=== PATIENT | female | born 1970 | race Caucasian/White ===

== ENCOUNTER 2016-10-20 18:59 | Emergency (ER) | payer SELFPAY ==
[~2016-10-20] VITALS: Ht 170.2 cm; Wt 101.2 kg
[~2016-10-20 18:59] MED LIST: ALPR0.25 PO; AZIT250T6 PO; BENZ100C PO; ESTR1.25 PO; OXYC-323 PO; PRED50TA PO; PROAIR RESPICL90 MCG IH; SERT50TA PO
[2016-10-20 20:23] VITALS: BP 131/75
[2016-10-20] MEDS ORDERED: CYCL5TAB PO (20:39)
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
[2016-10-20] MEDS ORDERED: IBUPROFEN 400 MG TABLET. PO ONE (20:45)
[2016-10-20] MEDS ORDERED: CYCLOBENZAPRINE 10 MG TABLET. PO ONE (20:45)
== END 2016-10-20 20:56 | disposition home or self-care (01) ==
LOC: ER 18:59
DX: M54.6 Pain in thoracic spine (principal); M54.5 Low back pain; M25.511 Pain in right shoulder; R51 Headache; Z90.49 Acquired absence of other specified parts of digestive tract; Z90.710 Acquired absence of both cervix and uterus; Z87.19 Personal history of other diseases of the digestive system
CPT/HCPCS: 99283

== ENCOUNTER 2017-02-01 03:00 | Emergency (ER) | payer SELFPAY ==
[~2017-02-01] VITALS: Ht 167.6 cm; Wt 101.2 kg
[~2017-02-01 03:00] MED LIST changes: +CYCL5TAB PO
[2017-02-01 03:30] VITALS: BP 158/109
[2017-02-01] MEDS ORDERED: ALPRAZolam 0.5 MG TABLET PO ONE (04:30)
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
--- NOTE | 2017-02-01 08:00 | RAD ---
Indication injury, pain. AP oblique and lateral views of the right hand were obtained. No bony abnormality is seen
== END 2017-02-01 04:48 | disposition home or self-care (01) ==
LOC: ER 03:00
DX: M79.641 Pain in right hand (principal); F41.9 Anxiety disorder, unspecified; W22.8XXA Striking against or struck by other objects, initial encounter; Y93.89 Activity, other specified; Y99.8 Other external cause status; Y92.89 Other specified places as the place of occurrence of the external cause
CPT/HCPCS: 73130; 99284

== ENCOUNTER 2017-03-13 07:14 | Emergency (ER) | payer SELFPAY ==
[~2017-03-13] VITALS: Ht 170.2 cm; Wt 97.5 kg
[2017-03-13 07:25] VITALS: BP 142/82
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
== END 2017-03-13 08:23 | disposition home or self-care (01) ==
LOC: ER 07:14
DX: M54.5 Low back pain (principal); F41.9 Anxiety disorder, unspecified; F32.9 Major depressive disorder, single episode, unspecified; Z90.49 Acquired absence of other specified parts of digestive tract; Z90.710 Acquired absence of both cervix and uterus
CPT/HCPCS: 72072; 72100; 99284